=== PATIENT | female | born 1940 ===

== ENCOUNTER 2017-01-24 02:04 | Emergency (ER) | payer MEDICARE, OTHER ==
[2017-01-24] MEDS ORDERED: LOTREL 5-10 MG1 EACH PO (02:13)
[2017-01-24] MEDS ORDERED: KOMBIGLYZE PO (02:13)
[2017-01-24] MEDS ORDERED: CELEXA20 M2 PO (02:13)
[2017-01-24] MEDS ORDERED: ASPIRIN EC81 MG PO (02:14)
[2017-01-24] MEDS ORDERED: KLONOPIN0.5 M1 PO (02:14)
[2017-01-24] MEDS ORDERED: WOMEN'S DAILY1 EAC4 PO (02:14)
[2017-01-24] MEDS ORDERED: CALCIUM WITH V1 EAC2 PO (02:14)
[2017-01-24] MEDS ORDERED: LIPITOR10 M1 PO (02:16)
[2017-01-24 02:30] LABS: URINE BILIRUBIN NEGATIVE (NEG); URINE BLOOD LARGE (NEG); URINE GLUCOSE (UA) LARGE (NEG); URINE KETONE MODERATE (NEG); URINE LEUKOCYTE ESTERASE NEGATIVE (NEG); URINE NITRITE NEGATIVE (NEG); URINE PH 6.5 (5.0-8.0); URINE PROTEIN SMALL (NEG); URINE SPECIFIC GRAVITY 1.015 (1.003-1.030)
[2017-01-24 02:31] LABS: URINE APPEARANCE HAZY; URINE COLOR YELLOW
[2017-01-24 02:36] LABS: URINE RBC 20-30 /[HPF] (0-5)
[2017-01-24 02:54] LABS: BASO % 0.1 % (0-2); EOS % 0.3 % (0-7); HCT-HEMATOCRIT 35.4 % (34.0-49.0); HGB-HEMOGLOBIN 11.8 gm/dl (12.0-15.5); IMMATURE GRANULOCYTES ABSOLUTE 0.05 tho/cmm (0-0.03); IMMATURE GRANULOCYTES PERCENT 0.4 % (0-0.3); LYMPH % 6.3 % (20-45); LYMPH ABSOLUTE COUNT 0.9 tho/cmm (0.8-4.5); MCH (MEAN CORPUSCULAR HGB) 29.3 pg (28.0-32.0); MCHC MEAN CORPUSCULAR HGB CONC 33.3 % (32.0-36.0); MCV (MEAN CELL VOLUME) 87.8 fl (82.0-96.0); MEAN PLATELET VOLUME 11.3 cmc (9.4-12.4); MONO % 1.9 % (0-12); MONOCYTE ABSOLUTE COUNT 0.3 tho/cmm (0.0-1.2); NEUTROPHIL ABSOLUTE COUNT 12.7 tho/cmm (1.6-8.0); NEUTROPHIL-AUTOMATED 12.7 tho/cmm (1.6-8.0); PLATELET COUNT 240 tho/cmm (150-450); RED BLOOD COUNT 4.03 mil/cmm (4.00-5.20); RED CELL DISTRIBUTION WIDTH 13.4 % (12.4-16.4)
[2017-01-24 03:24] LABS: ALB/GLOB RATIO 0.9 (0.8-2.0); ALBUMIN 3.8 g/dl (3.5-5.0); ALKALINE PHOSPHATASE 89 U/L (33-138); ALT/SGPT 18 U/L (12-78); BILIRUBIN,TOTAL 0.3 mg/dl (0-1.5); BLOOD UREA NITROGEN 26 mg/dl (6-24); CALCIUM 9.4 mg/dl (8.5-10.5); CARBON DIOXIDE-VENOUS 22 mmol/L (22-32); CHLORIDE 107 mmol/l (96-110); CREATININE 1.07 mg/dl (0.50-1.10); GLUCOSE 314 mg/dL (70-110); SODIUM 140 mmol/L (135-145); eGFR VALUE FOR BLACK 59 mL/Min
[2017-01-24 03:34] LABS: ANION GAP 15 mmol/L (0-20); AST/SGOT 22 U/L (10-40); POTASSIUM 4.1 mmol/L (3.7-5.1)
[2017-01-24] MEDS ORDERED: FLOMAX0.4 M1 PO (05:01)
[2017-01-24] MEDS ORDERED: NORCO 5/3251 TAB PO (05:01)
[2017-01-24] MEDS ORDERED: ZOFRAN4 M2 PO (05:01)
== END 2017-01-24 05:15 ==
LOC: EDMED 02:04
PROVIDERS: Emergency Medicine
DX: N20.0 Calculus of kidney (principal); E11.9 Type 2 diabetes mellitus without complications; I10 Essential (primary) hypertension; Z87.442 Personal history of urinary calculi; Z79.82 Long term (current) use of aspirin; Z79.899 Other long term (current) drug therapy
CPT/HCPCS: J1885; J2270; J7030